=== PATIENT | female | born 1985 | race African-American/Black ===

== ENCOUNTER 2025-10-31 06:42 | Emergency (ER) | payer MEDICAID ==
[~2025-10-31] VITALS: Ht 172.7 cm; Wt 180.0 kg
[~2025-10-31 06:42] MED LIST: ALBU18HF12 IH; PRED-554 PO
[2025-10-31 06:48] VITALS: TEMP 97.9
[2025-10-31 07:10] VITALS: BP 134/91; PULSE 67; RESP 16; O2SAT 98
[2025-10-31] MEDS: OFLOXACIN 0.3% 5 ML OTIC SOLUTION AD ONE (08:24)
== END 2025-10-31 08:29 | disposition home or self-care (01) ==
LOC: EMS 06:43
DX: H60.91 Unspecified otitis externa, right ear (principal); J45.901 Unspecified asthma with (acute) exacerbation; Z79.52 Long term (current) use of systemic steroids; Z91.010 Allergy to peanuts; Z91.013 Allergy to seafood
CPT/HCPCS: 99282; 99283